=== PATIENT | female | born 1950 | race Caucasian/White ===

== ENCOUNTER 2022-05-13 11:01 | Outpatient (CLI) | payer OTHER, SELFPAY ==
[2022-05-13 13:49] LABS: Ferritin* 8.4 ng/mL (11.1-264.0)
== END 2022-05-13 11:02 | disposition home or self-care (01) ==
LOC: NFLDREF 11:02
PROVIDERS: PCP Family Medicine; Visit Provider Family Medicine
DX: K62.5 Hemorrhage of anus and rectum (principal)
CPT/HCPCS: 82728

== ENCOUNTER 2023-02-03 08:15 | Outpatient (CLI) | payer OTHER, SELFPAY | END 2023-02-03 08:16 | disposition home or self-care (01) | LOC: NFLDREF 11:55 | PROVIDERS: PCP Family Medicine; Referring Provider Family Medicine; Visit Provider Family Medicine | DX: Z00.00 Encounter for general adult medical examination without abnormal findings (principal); E78.5 Hyperlipidemia, unspecified; M85.80 Other specified disorders of bone density and structure, unspecified site; F41.9 Anxiety disorder, unspecified; Z13.21 Encounter for screening for nutritional disorder | CPT/HCPCS: 80061; 82306; 82947 ==

== ENCOUNTER 2023-02-09 08:53 | Outpatient (CLI) | payer OTHER, SELFPAY ==
--- NOTE | 2023-02-09 09:15 | CRLHL7_ITS ---
For Patients: As a result of the Century Cures Act, medical imaging exams and procedure reports are released immediately into your electronic medical record. You may view this report before your referring provider. If you have questions, please contact your health care provider. BILATERAL SCREENING MAMMOGRAM WITH COMPUTER-AIDED DETECTION AND TOMOSYNTHESIS TECHNIQUE: CC and MLO views were obtained. These mammographic images have been obtained using full-field digital technique. These mammographic images were interpreted with the benefit of computer-aided detection. Breast Tomosynthesis was used in this interpretation. COMPARISON FILM: 02/05/22, 10/29/20, 06/30/19. FINDINGS: There are scattered areas of fibroglandular density IMPRESSION: There is no radiographic evidence for malignancy. ASSESSMENT: BI-RADS Category 1: Negative RECOMMENDATION: Routine screening mammogram in 1 year. A lay language report of this examination will be provided to the patient. Delon Prather M.D. Diagnostic Radiologist [email or web address] RADHA/Dictated by: Delon Prather MD @ 02/09/2023 10:00:00 AM (Electronically Signed)
== END 2023-02-09 08:54 | disposition home or self-care (01) ==
LOC: MAMMO 08:54
PROVIDERS: PCP Family Medicine; Visit Provider Family Medicine
DX: Z12.31 Encounter for screening mammogram for malignant neoplasm of breast (principal)
CPT/HCPCS: 77063; 77067

== ENCOUNTER 2024-02-24 08:39 | Outpatient (CLI) | payer OTHER, SELFPAY ==
--- NOTE | 2024-02-24 09:15 | CRLHL7_ITS ---
For Patients: As a result of the Century Cures Act, medical imaging exams and procedure reports are released immediately into your electronic medical record. You may view this report before your referring provider. If you have questions, please contact your health care provider. BILATERAL SCREENING MAMMOGRAM WITH COMPUTER-AIDED DETECTION AND TOMOSYNTHESIS TECHNIQUE: CC and MLO views were obtained. These mammographic images have been obtained using full-field digital technique. These mammographic images were interpreted with the benefit of computer-aided detection. Breast Tomosynthesis was used in this interpretation. COMPARISON FILM: 02/09/23, 02/05/22, 10/29/20. FINDINGS: There are scattered areas of fibroglandular density. IMPRESSION: There is no radiographic evidence for malignancy. ASSESSMENT: BI-RADS Category 1: Negative RECOMMENDATION: Routine screening mammogram in 1 year. A lay language report of this examination will be provided to the patient. Sam Naqvi M.D. Diagnostic/Nuclear Medicine Radiologist [email or web address] ANTWON/digna SP/Dictated by: Sam Naqvi MD @ 02/24/2024 11:07:00 AM (Electronically Signed)
== END 2024-02-24 08:40 | disposition home or self-care (01) ==
LOC: MAMMO 08:42
PROVIDERS: PCP Physician Assistant Medical; Visit Provider Physician Assistant Medical
DX: Z12.31 Encounter for screening mammogram for malignant neoplasm of breast (principal)
CPT/HCPCS: 77063; 77067

== ENCOUNTER 2024-04-26 08:59 | Outpatient (CLI) | payer OTHER, SELFPAY ==
--- OUTSIDE RECORDS SUMMARY | 2024-04-26 09:04 | XMS_ITS | Encounter Summary ---
Author Organization [facility] Address [address] [place] [address]. [place] [address] Care Team Providers Care Funeral Assistant Name Role Phone Concha Garcia MD Primary Care Provider [phone] Debbie Murrell RN Unavailable Unavail able LogeaisZoe MD Primary Care Provider [phone] LogeaisZoe MD Unavailable LogeaisZoe MD Unavailable Homa Patterson MD Primary Care Provider + Encounter Details Date Type Department Care Team (Late st Contact Info) Description 09/20/2012 Abstract [address] [address] Chiquita Grady RN Social History Tobacco Use Types Packs/Day Years Used Date Smoking Tobacco: Never Alcohol Use Standard Drinks/Week Comments Yes 0 (1 standard drink = 0.6 oz pur e alcohol) 1-2 beers per month Sex and Gender Information Value Date Recorded Sex Assigned at Not on file Gender Identity Not on file Sexual Orientation Not on file documented as of this encounter Plan of Treatment Not on file documented as of this encounter Visit Diagnoses Not on filedocumented in this encounter Care Teams Funeral Assistant Relationship Specialty [place] [address] [place] [address] PCP - General 02/26/12 02/13/14 Zoe Esqueda MD PCP - General Internal Medicine 02/14/14 03/17/23 Homa Patterson MD [address] [address] PCP - General 03/18/23 Debbie Murrell RN Tech Transplant 02/26/12 Zoe Esqueda MD [address] [place] [address] Assigned PCP 01/04/20 11/23/20 Zoe Esqueda MD [address] [place] [address] Assigned PCP 01/09/21 07/12/21 documented as of this encounter
--- OUTSIDE RECORDS SUMMARY | 2024-04-26 09:04 | XMS_ITS | Encounter Summary ---
Author Organization [facility] Address [address] [place] [address] Care Team Providers Care Mental Health Program Manager Name Role Phone Debbie Murrell RN Unavailable Unavail able LogeaZoe sanchez MD Primary Care Provider [phone] Zoe Esqueda MD Unavailable LogeaZoe sanchez MD Unavailable Homa Patterson MD Primary Care Provider + Encounter Details Date Type Department Care Team (Late st Contact Info) Description 04/03/2016 [facility] [address] [place] [phone] Zoe Esqueda MD [address] [place] [address] Social History Tobacco Use Types Packs/Day Years Used Date Smoking Tobacco: Never Smokeless Tobacco: Never Alcohol Use Standard Drinks/Week Comments [...] on filedocumented in this encounter Care Teams Mental Health Program Manager Relationship Specialty Start Date End Date Zoe Esqueda MD PCP - General Internal Medicine 02/14/14 03/17/23 Homa Patterson MD [address] [address] PCP - General 03/18/23 Debbie Murrell, RN Tech Transplant 02/26/12 Zoe Esqueda MD [address] [id number] Assigned PCP 01/04/20 11/23/20 Zoe Esqueda MD [address] [place] [id number] Assigned PCP 01/09/21 07/12/21 documented as of this encounter
--- OUTSIDE RECORDS SUMMARY | 2024-04-26 09:04 | XMS_ITS | Referral Summary ---
Author Organization [facility] Address [address] [place] [address]. [place] [address] Care Team Providers Care Records Administrator Name Role Phone Debbie Murrell RN Unavailable Unavail able Homa Patterson MD Primary Care Provider + Allergies No known active allergies Medications Medication Sig Dispensed Refills Start Date End Date Status UNABLE TO FIND Take 1 tablet by mouth 2 times daily Beta-TCP 08/16/2014 Active UNABLE TO FIND Take 2 tablets by mouth 2 times daily Bio-Glycozyme Forte 08/16/2014 Active UNABLE TO FIND Take 3 tablets by mouth 2 times daily [place]-Zyme Active UNABLE TO FIND Take 1 tablet by mouth 2 times daily Multi-Mins 08/16/2014 Active UNABLE TO FIND Take 1 tablet by mouth 2 times daily PoSynbiotic 08/16/2014 Active diazepam (VALIUM) 2 MG tabletIndications:C laustrophobia Take 3 tablets (6 mg) by mouth every 6 hours as needed for anxiety (10 min prior to MRI, 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 [email or web address] Problem Noted Date Diagnosed Date Pain in joint of left shoulder 04/24/2016 Hypercholesterolemia 02/26/2012 Overview: Diagnosis updated by automated process. Provider to review and confirm. Hyperlipidemia 02/26/2012 Overview: Problem list name updated by automated process. Provider to review Transplant donor evaluation 02/26/2012 Claustrophobia 02/26/2012 Lumbar degenerative disc disease Overview: not really an issue Pelvic pain in female Immunizations Name Administration Dates Next Due Influenza (High Dose) Trivalent,PF (Fluzone) Influenza (IIV3) PF 06/11/2017,09/18/2012 Pneumo Conj 13-V (2010&after) 07/11/2018 TDAP (Adacel,Boostrix) 01/14/2013 TDAP Vaccine (Boostrix) 01/31/2013 Zoster recombinant adjuvanted (SHINGRIX) 018 Zoster vaccine, live 01/31/2013 Social History Tobacco Use Types Packs/Day Years Used Date Smoking Tobacco: Never Smokeless Tobacco: Never Tobacco Cessation:Counseling Given: No Alcohol Use Standard Drinks/Week Comments Yes 0 (1 standard drink = 0.6 oz pur e alcohol) 1-2 beers per month PHQ-2 Answer Date Recorded PHQ-2 Score 0 07/11/2018 Adolescent Education Answer Date Record ed Getting School Help Needed Not on file 05/13 Sex and Gender Information Value Date Recorded Sex Assigned at Not on file Gender Identity Not on file Sexual Orientation Not on file Last Filed Vital Signs Vital Sign Reading Time Taken Comments Blood Pressure 121/82 07/11/2018 11:39 AM DATA SCIENTIST Pulse 69 07/11/2018 11:39 AM DATA SCIENTIST Temperature 36.5 ??C (97.7 ??F) 06/11/2017 7:44 AM CD T Respiratory Rate 18 06/11/2017 7:44 AM CDT Oxygen Saturation 97% 07/11/2018 11:39 AM DATA SCIENTIST Inhaled Oxygen Concentration - - Weight 84.4 kg (186 lb) 07/11/2018 11:39 AM DATA SCIENTIST Height 172 cm (5' 7.72) 06/11/2017 7:44 AM CDT Body Mass Index 28.52 06/11/2017 7:44 AM CDT Plan of Treatment Not on file Procedures Procedure Name Priority Date/Time Associated Diagnosis Comments COLONOSCOPY - HIM SCAN Routine 9 9:11 AM CDT COMPREHENSIVE METABOLIC PANEL Routine 07/11/2018 1:32 PM DATA SCIENTIST Routine general medical examination at a health care facility Kidney donor LIPID REFLEX TO DIRECT LDL PANEL Routine 07/11/2018 1:32 PM DATA SCIENTIST Hypercholesterolemi a MAMMOGRAM - HIM SCAN 07/27/2013 HEPATITIS C ANTIBODY Routine 02/26/2012 8:17 AM CDT Donor of kidney for transplant Transplant donor evaluation from Last 3 Months or Most Recently Relevant to Health Maintenance Results * (ABNORMAL) Colonoscopy - HIM Scan (04/07/2019) Jodies Jesus Alberto Gracia CMA - 04/07/2019 [facility] Colorectal polyp detected on colonoscopy Hemorrhoids, internal Patient Reported PROCEDURES * (ABNORMAL) Lipid panel reflex to direct LDL Fasting (07/11/2018 1:32 PM DATA SCIENTIST) Cholesterol 198 <200 mg/dL 07/11/2018 2:09 PM DATA SCIENTIST [facility] Triglycerides 88 <150 mg/dL 07/11/2018 2:09 PM DATA SCIENTIST [facility] HDL Cholesterol 57 >49 mg/dL 8 2:09 PM DATA SCIENTIST [facility] LDL Cholesterol Calculated 123(H) <100 mg/dL 07/11/2018 2:09 PM DATA SCIENTIST [facility] Comment: Above desirable: ??100-129 mg/dl Borderline High: ??130-159 mg/dL High: ? 160-189 mg/dL Very high: ? >189 mg/dl Non HDL Cholesterol 141(H) <130 mg/dL 07/11/2018 2:09 PM DATA SCIENTIST [facility] Comment: Above Desirable: ??130-159 mg/dl Borderline high: ??160-189 mg/dl High: ? 190-219 mg/dl Very high: ? >219 mg/dl Blood specimen (specimen) 07/11/2018 1:32 PM DATA SCIENTIST 07/11/2018 1:35 PM DATA SCIENTIST Zoe Esqueda MD LAB - BLOOD ORDERABL ES [facility] [address] [phone] * Comprehensive metabolic panel (07/11/2018 1:32 PM DATA SCIENTIST) Sodium 141 133 - 144 mmol/L 07/11/2018 2:09 PM DATA SCIENTIST [facility] Potassium 4.3 3.4 - 5.3 mmol/L 07/11/2018 2:09 PM DATA SCIENTIST [facility] Chloride 108 94 - 109 mmol/L 07/11/2018 2:09 PM [facility] Carbon Dioxide 25 20 - 32 mmol/L 07/11/2018 2:09 PM [facility] Anion Gap 8 3 - 14 mmol/L 07/11/2018 2:09 PM [facility] Glucose 83 70 - 99 mg/dL 07/11/2018 2:09 PM [facility] Urea Nitrogen 14 7 - 30 mg/dL 07/11/2018 2:09 PM [facility] Creatinine 0.70 0.52 - 1.04 mg/dL 07/11/2018 2:09 PM [facility] GFR Estimate 83 >60 mL/min/1.7 m2 07/11/2018 2:09 PM [facility] Comment:Non GFR Calc GFR Estimate If Black >90 >60 mL/min/1.7 m2 07/11/2018 2:09 PM [facility] Comment: GFR Calc Calcium 8.6 8.5 - 10.1 mg/dL 07/11/2018 2:09 PM [facility] Bilirubin Total 0.6 0.2 - 1.3 mg/dL 07/11/2018 2:09 PM [facility] Albumin 3.8 3.4 - 5.0 g/dL 07/11/2018 2:09 PM [facility] Protein Total 7.5 6.8 - 8.8 g/dL 07/11/2018 2:09 PM [facility] Alkaline Phosphatase 64 40 - 150 U/L 07/11/2018 2:09 PM DATA SCIENTIST [facility] ALT 39 0 - 50 U/L 07/11/2018 2:09 PM DATA SCIENTIST [facility] AST 32 0 - 45 U/L 07/11/2018 2:09 PM DATA SCIENTIST [facility] Blood specimen (specimen) 07/11/2018 1:32 PM DATA SCIENTIST 07/11/2018 1:35 PM DATA SCIENTIST Zoe Esqueda MD LAB - BLOOD PRASANNAABL RYAN Performing Organization Address City/[facility] [address]/ZIP Co de Phone Number [address] [phone] * MAMMOGRAM - HIM SCAN (07/27/2013) Anatomical Region Laterality Modality Other 07/27/2013 Narrative Transcriptions Scan, Provider - 08/28/2013 2:25 PM CST Provider Outside IMG MAMMOGRAPHY NEVA URIBE * Hepatitis C antibody (02/26/2012 8:17 AM CDT) Hepatitis C Antibody Negative [facility] Blood specimen (specimen) 02/26/2012 8:17 AM CDT 02/26/2012 8:22 AM CDT Meir Bloom MD LAB - BLOOD NEVA URIBE [facility] from Last 3 Months or Most Recently Relevant to Health Maintenance Care Teams Records Administrator Relationship Specialty Start Date End Date Homa Patterson MD [facility] [address] [place] [address] PCP - General 03/18/23 Debbie Murrell, RN Tech Transplant 02/26/12
--- OUTSIDE RECORDS SUMMARY | 2024-04-26 09:04 | XMS_ITS | Encounter Summary ---
Author Organization [facility] Address [address] [place] [address]. [place] [address] Care Team Providers Care Shed Boss Name Role Phone Concha Garcia MD Primary Care Provider [phone] Debbie Murrell RN Unavailable Unavail able LogZoe govea MD Primary Care Provider [phone] LogZoe govea MD Unavailable LogeaZoe sanchez MD Unavailable Homa Patterson MD Primary Care Provider + Encounter Details Date Type Department Care Team (Late st Contact Info) Description 02/02/2014 MyC Medical Advice Initial Department [facility] Social History Tobacco Use Types Packs/Day Years [...] on filedocumented in this encounter Care Teams Shed Boss Relationship Specialty [place] [address] [place] [address] PCP - General 02/26/12 02/13/14 Zoe Esqueda MD PCP - General Internal Medicine 02/14/14 03/17/23 Homa Patterson MD [facility] [address] [address] PCP - General 03/18/23 Debbie Murrell, RN Tech Transplant 02/26/12 Zoe Esqueda MD [address] [place] [address] Assigned PCP 01/04/20 11/23/20 Zoe Esqueda MD [address] [place] [address] Assigned PCP 01/09/21 07/12/21 documented as of this encounter
--- OUTSIDE RECORDS SUMMARY | 2024-04-26 09:04 | XMS_ITS | Encounter Summary ---
Author Organization [facility] Address [address] [place] [address] Care Team Providers Care Inspector Repairer Name Role Phone Debbie Murrell RN Unavailable Unavail able LogeaZoe sanchez MD Primary Care Provider [phone] LogZoe govea MD Unavailable LogeaZoe sanchez MD Unavailable Homa Patterson MD Primary Care Provider + Encounter Details Date Type Department Care Team (Late st Contact Info) Description 08/24/2018 [facility] [address] [place] [phone] Zoe Esqueda MD [address] [place] [address] Social History Tobacco Use Types Packs/Day Years Used Date Smoking Tobacco: Never Smokeless Tobacco: Never Alcohol Use Standard Drinks/Week Comments Yes 0 (1 standard drink = 0.6 oz pur e alcohol) 1-2 beers per month PHQ-2 Answer Date Recorded PHQ-2 Score 0 07/11/2018 Sex and Gender Information Value Date Recorded Sex Assigned at Not on file Gender Identity Not on file Sexual Orientation Not on file documented as of this encounter Plan of Treatment Not on file documented as of this encounter Visit Diagnoses Not on filedocumented in this encounter Care Teams Inspector Repairer Relationship Specialty Start Date End Date Zoe Esqueda MD PCP - General Internal Medicine 02/14/14 03/17/23 Homa Patterson MD [address] [address] PCP - General 03/18/23 Debbie Murrell, LENNOX Tech Transplant 02/26/12 Zoe Esqueda MD [address] [address] Assigned PCP 01/04/20 11/23/20 Zoe Esqueda MD [address] [address] Assigned PCP 01/09/21 07/12/21 documented as of this encounter
--- OUTSIDE RECORDS SUMMARY | 2024-04-26 09:04 | XMS_ITS | Clinical Summary ---
Author Organization [facility] [place] [address] Care Team Providers Care Global Marketing Intern Name Role Phone Concha Garcia MD Primary Care Provider [phone] Allergies No known active allergies Medications Medication Sig Dispensed Refills Start Date End Date Status aspirin 81 mg tablet Take 81 mg by mouth once daily with a meal. Active acetaminophen SR (TYLENOL ARTHRITIS) 650 mg extended release tabletIndications: arthritic pain Take 650 mg by mouth every 8 hours if needed. Max acetaminophen dose: 4000mg in 24 hrs. Indications: ARTHRITIC PAIN Active Edmonds-3 Fatty Acids (FISH OIL CONCENTRATE) 1,000 mg Cap Take 2 capsules by mouth 2 times daily. Active Magnesium 500 mg Tab Take 500 mg by mouth once daily in the evening. Active Potassium Gluconate 595 (99) mg tablet Take by mouth before bedtime. Active Cholecalciferol, Vitamin D3, (VITAMIN D-3) 2,000 unit tablet Take by mouth once daily. Active ORDER - MEDICATION ORDER COMPOSER Take 2 Tabs by mouth 2 times daily. USANA essential and USANA kathie antioxidant Active GLUC/CADENCE-MSM#1/C/ EARNESTINE/DOROTHY/BOR (OSTEO BI-FLEX ORAL) Take 1 Tab by mouth 2 times daily. Active ibuprofen (ADVIL; MOTRIN) 600 mg tablet Take 1 tablet by mouth every 6 hours if needed for Pain. Maximum of 3200 mg in 24 hours. 20 tablet 0 06/19/2011 Active HYDROcodone-acetam inophen, 5-500 mg, (VICODIN) Tab tablet Take 1-2 tablets by mouth every 4 hours if needed for Pain. Max acetaminophen dose: 4000mg in 24 hrs. 20 tablet 0 06/19/2011 Active Social History Tobacco Use Types Packs/Day Years Used Date Smoking Tobacco: Never Alcohol Use Standard Drinks/Week Comments Not Asked 0 (1 standard drink = 0.6 oz pur e alcohol) Sex and Gender Information Value Date Recorded Sex Assigned at Not on file Gender Identity Not on file Sexual Orientation Not on file Obstetrics History Last Filed Vital Signs Vital Sign Reading Time Taken Comments Blood Pressure 103/65 06/19/2011 1:30 PM CDT Pulse 80 06/19/2011 1:30 PM CDT Temperature 35.9 ??C (96.6 ??F) 06/19/2011 12:06 PM C DT Respiratory Rate 16 06/19/2011 1:30 PM CDT Oxygen Saturation 99% 06/19/2011 1:30 PM CDT Inhaled Oxygen Concentration - - Weight 86.7 kg (191 lb 2.2 oz) 06/19/2011 7:00 A M CDT Height 174 cm (5' 8.5) 06/19/2011 7:00 AM CDT Body Mass Index 28.64 06/19/2011 7:00 AM CDT Plan of Treatment Not on file Advance Directives * Full Code (Latest Code Status on File) Date Activated Date Inactivated Comments 06/19/2011 11:07 AM 06/19/2011 3:51 PM Care Teams Global Marketing Intern Relationship Specialty Start Date End Date Concha Garcia MD PCP - General Family Practice 05/11/11
--- OUTSIDE RECORDS SUMMARY | 2024-04-26 09:04 | XMS_ITS | Clinical Summary ---
Author Organization [place] Address [address] [place] [address]. [place] [address] Care Team Providers Care Operator/Assistant Foreman Name Role Phone Debbie Murrell RN Unavailable [...] 3 tablets by mouth 2 times daily [place]-Zyme Active UNABLE TO FIND Take 1 tablet by mouth 2 times daily Multi-Mins 08/16/2014 Active UNABLE TO FIND Take 1 tablet by mouth 2 times daily PoSynbiotic 08/16/2014 Active diazepam (VALIUM) 2 MG tabletIndications:C laustrophobia Take 3 tablets (6 mg) by mouth every 6 hours as needed for anxiety (10 min prior to MRI, needs to have log driver home) 3 tablet 06/09/2018 Active Active Problems Patient Care Coordination No te Formatting of this note migh t be different from the original. [email or web address] Problem Noted Date Diagnosed Date Pain in [...] adjuvanted (SHINGRIX) 018 Zoster vaccine, live 01/31/2013 Family History Medical History Relation Comments Thyroid Disease Brother 1 Depression Brother 2 Diabetes Brother 3 adult onset Cerebrovascular Disease Father fro m brain aneurysm Cardiovascular Mother chronic kidney d isease Hypertension Mother Thyroid Disease Other nephew Other - See Comments Paternal Aunt diabetes Thyroid Disease Sister 1 Other - See Comments Sister 2 bladder can cer Hypertension Sister 3 Depression Sister 4 Lung Cancer Sister 5 Relation Status Comments Brother 1 Brother 2 Brother 3 Father Mother Other Paternal Aunt Sister 1 Sister 2 Sister 3 Sister 4 Sister 5 Social History Tobacco Use Types Packs/Day Years [...] Comments Blood Pressure 121/82 07/11/2018 11:39 AM EARLY YEARS TEACHER Pulse 69 07/11/2018 11:39 AM EARLY YEARS TEACHER Temperature 36.5 ??C (97.7 ??F) 06/11/2017 7:44 AM CD T Respiratory Rate 18 06/11/2017 7:44 AM CDT Oxygen Saturation 97% 07/11/2018 11:39 AM EARLY YEARS TEACHER Inhaled Oxygen Concentration - - Weight 84.4 kg (186 lb) 07/11/2018 11:39 AM EARLY YEARS TEACHER Height 172 cm (5' 7.72) 06/11/2017 7:44 AM CDT Body Mass Index 28.52 06/11/2017 7:44 AM CDT Plan of Treatment Health Maintenance Due Date Last Done Comments ADVANCE CARE PLANNING 1950 ANNUAL REVIEW OF HM ORDERS 1950 CT COLONOGRAPHY 1952 DEXA 1952 FIT 1952 FLEX SIG 1952 sDNA (Cologuard) 1950 MAMMO SCREENING 10/31/2017 11/01/2015, 07/27/2013 FALL RISK ASSESSMENT 07/11/2019 07/11/2018 LIPID 07/11/2019 07/11/2018, 05/17, 04/01/2016, Additional history exists MEDICARE ANNUAL WELLNESS VISIT 07/11/2019 07/11/2018, 06/11/2017, 04/03/2016, Additional history exists GLUCOSE 07/11/2021 07/11/2018, 05/17, 03/28/2015, Additional history exists DTAP/TDAP/TD IMMUNIZATION (3 - Td or Tdap) 01/31/2023 01/31/2013, 01/14/2013 PHQ-2 (once per calendar year) 2023 07/11/2018 COVID-19 Vaccine ( season) 2024 08/06/2022, 03/29/2022, 06/30/2021, Additional history exists INFLUENZA VACCINE (#1) 2024 , 06/14/2022, 05/20/2021, Additional history exists COLONOSCOPY 05/04/2024 05/04/2019, 03/17, 04/07/2019, Additional history exists COLORECTAL CANCER SCREENING 05/04/2024 RSV VACCINE (1 - 1-dose 75+ series) 2027 HEPATITIS C SCREENING Completed 02/26/2012 ZOSTER IMMUNIZATION Completed 08/01/2019, 07/11/2018, 01/31/2013 Pneumococcal Vaccine: 65+ Years Completed 01/20/2022, 07/11/2018 HPV IMMUNIZATION Aged Out No longer e ligible based on patient's age to complete this topic MENINGITIS IMMUNIZATION Aged Out No l onger eligible based on patient's age to complete this topic RSV MONOCLONAL ANTIBODY Aged Out No l onger eligible based on patient's age to complete this topic Procedures Procedure Name Priority Date/Time Associated Diagnosis Comments COLONOSCOPY - HIM SCAN Routine 9 9:11 AM CDT COMPREHENSIVE METABOLIC PANEL Routine 07/11/2018 1:32 PM EARLY YEARS TEACHER Routine general medical examination at a health care facility Kidney donor LIPID REFLEX TO DIRECT LDL PANEL Routine 07/11/2018 1:32 PM EARLY YEARS TEACHER Hypercholesterolemi a MAMMOGRAM - HIM SCAN 07/27/2013 HEPATITIS C ANTIBODY Routine 02/26/2012 8:17 AM CDT Donor of kidney for transplant Transplant donor evaluation from Last 3 Months or Most Recently Relevant to Health Maintenance Results * (ABNORMAL) Colonoscopy - HIM Scan (04/07/2019) Impressions Jesus Alberto Gracia CMA - 04/07/2019 [facility] Colorectal polyp detected on colonoscopy Hemorrhoids, internal Patient Reported PROCEDURES * (ABNORMAL) Lipid panel reflex to direct LDL Fasting (07/11/2018 1:32 PM EARLY YEARS TEACHER) Cholesterol 198 <200 mg/dL 07/11/2018 2:09 PM EARLY YEARS TEACHER [facility] Triglycerides 88 <150 mg/dL 07/11/2018 2:09 PM EARLY YEARS TEACHER [facility] HDL Cholesterol 57 >49 mg/dL 8 2:09 PM EARLY YEARS TEACHER [facility] LDL Cholesterol Calculated 123(H) <100 mg/dL 07/11/2018 2:09 PM [facility] Comment: Above desirable: ??100-129 mg/dl Borderline High: ??130-159 mg/dL High: ? 160-189 mg/dL Very high: ? >189 mg/dl Non HDL Cholesterol 141(H) <130 mg/dL 07/11/2018 2:09 PM EARLY YEARS TEACHER [facility] Comment: Above Desirable: ??130-159 mg/dl Borderline high: ??160-189 mg/dl High: ? 190-219 mg/dl Very high: ? >219 mg/dl Blood specimen (specimen) 07/11/2018 1:32 PM EARLY YEARS TEACHER 07/11/2018 1:35 PM EARLY YEARS TEACHER Zoe Esqueda MD LAB - BLOOD ORDERABL ES [address] [phone] * Comprehensive metabolic panel (07/11/2018 1:32 PM EARLY YEARS TEACHER) Sodium 141 133 - 144 mmol/L 07/11/2018 2:09 PM EARLY YEARS TEACHER [facility] Potassium 4.3 3.4 - 5.3 mmol/L 07/11/2018 2:09 PM [facility] Chloride 108 94 - 109 mmol/L 07/11/2018 2:09 PM [facility] Carbon Dioxide 25 20 - 32 mmol/L 07/11/2018 2:09 PM EARLY YEARS TEACHER [facility] Anion Gap 8 3 - 14 mmol/L 07/11/2018 2:09 PM [facility] Glucose 83 70 - 99 mg/dL 07/11/2018 2:09 PM [facility] Urea Nitrogen 14 7 - 30 mg/dL 07/11/2018 2:09 PM [facility] Creatinine 0.70 0.52 - 1.04 mg/dL 07/11/2018 2:09 PM EARLY YEARS TEACHER [facility] GFR Estimate 83 >60 mL/min/1.7 m2 07/11/2018 2:09 PM [facility] Comment:Non GFR Calc GFR Estimate If Black >90 >60 mL/min/1.7 m2 07/11/2018 2:09 PM [facility] Comment: GFR Calc Calcium 8.6 8.5 - 10.1 mg/dL 07/11/2018 2:09 PM EARLY YEARS TEACHER [facility] Bilirubin Total 0.6 0.2 - 1.3 mg/dL 07/11/2018 2:09 PM EARLY YEARS TEACHER [facility] Albumin 3.8 3.4 - 5.0 g/dL 07/11/2018 2:09 PM EARLY YEARS TEACHER [facility] Protein Total 7.5 6.8 - 8.8 g/dL 07/11/2018 2:09 PM EARLY YEARS TEACHER [facility] Alkaline Phosphatase 64 40 - 150 U/L 07/11/2018 2:09 PM EARLY YEARS TEACHER [facility] ALT 39 0 - 50 U/L 07/11/2018 2:09 PM EARLY YEARS TEACHER [facility] AST 32 0 - 45 U/L 07/11/2018 2:09 PM EARLY YEARS TEACHER [facility] Blood specimen (specimen) 07/11/2018 1:32 PM EARLY YEARS TEACHER 07/11/2018 1:35 PM EARLY YEARS TEACHER Zoe Esqueda MD LAB - BLOOD BHAVYA DAVIS Performing Organization Address City/[facility]/ZIP Co de Phone Number [address] [phone] * MAMMOGRAM - HIM SCAN (07/27/2013) Anatomical Region Laterality Modality Other 07/27/2013 Narrative Transcriptions Scan, Provider - 08/28/2013 2:25 PM CST Provider Outside IMG MAMMOGRAPHY NEVA URIBE * Hepatitis C antibody (02/26/2012 8:17 AM CDT) Hepatitis C Antibody Negative NEG [facility] Blood specimen (specimen) 02/26/2012 8:17 AM CDT 02/26/2012 8:22 AM CDT Meir Bloom MD LAB - BLOOD NEVA URIBE [facility] from Last 3 Months or Most Recently Relevant to Health Maintenance Care Teams Operator/Assistant Foreman Relationship Specialty Start Date End Date Homa Patterson MD [facility] [address] [place] [address] PCP - General 03/18/23 Debbie Murrell RN Tech Transplant 02/26/12
--- OUTSIDE RECORDS SUMMARY | 2024-04-26 09:04 | XMS_ITS ---
Author Organization [place] Address [address] [place] [address] Care Team Providers Care Machine Welder Name Role Phone Debbie Murrell RN, Ingrid Sara MD Primary Care Provider + Transplant Episode Kidney Potential Donor [facility] ([place], [place]) - [place] Evaluation began on 02/26/2012 Marked as Active on 02/26/2012 Kidney CoordinatorDebbie Murrell RN Phone: N/A Fax: N/A Email: Care Team Name Role Phone Fax Email Debbie Murrell RN Kidney Coordinator N/A N/A Events Pre-Donation Referred: 01/15/2012 Evaluation began: 02/26/2012 Committee: 04/11/2012
== END 2024-04-26 09:00 | disposition home or self-care (01) ==
PROVIDERS: PCP Physician Assistant Medical; Visit Provider Physician Assistant Medical
DX: R53.83 Other fatigue (principal); M85.852 Other specified disorders of bone density and structure, left thigh; E78.00 Pure hypercholesterolemia, unspecified; Z13.29 Encounter for screening for other suspected endocrine disorder
CPT/HCPCS: 80053; 80061; 82306; 84443

== ENCOUNTER 2024-05-24 12:46 | Outpatient (CLI) | payer OTHER, SELFPAY ==
--- OUTSIDE RECORDS SUMMARY | 2024-05-24 12:50 | XMS_ITS | Encounter Summary ---
Author Organization [place] Address [address] [place] [address]. [place] [address] Care Team Providers Care Cardiovascular Surgeon Name Role Phone Concha Garcia MD Primary Care Provider [phone] Debbie Murrell RN Unavailable Unavail able LogeaisZoe MD Primary Care Provider [phone] LogeaisZoe MD Unavailable LogeaisZoe MD Unavailable Homa Patterson MD Primary Care Provider + Encounter Details Date Type Department Care Team (Late st Contact Info) Description 09/20/2012 Abstract [address] [phone] Chiquita Grady RN Social History Tobacco Use [...] on filedocumented in this encounter Care Teams Cardiovascular Surgeon Relationship Specialty [place] [address] [place] [address] PCP - General 02/26/12 02/13/14 Zoe Esqueda MD PCP - General Internal Medicine 02/14/14 03/17/23 Homa Patterson MD [address] [address] PCP - General 03/18/23 Debbie Murrell RN Tech Transplant 02/26/12 Zoe Esqueda MD [address] [place] [address] Assigned PCP 01/04/20 11/23/20 Zoe Esqueda MD [address] [place] [address] Assigned PCP 01/09/21 07/12/21 documented as of this encounter
--- OUTSIDE RECORDS SUMMARY | 2024-05-24 12:50 | XMS_ITS | Encounter Summary ---
Author Organization [place] Address [address] [place] [address] Care Team Providers Care Tape Controlled Machine Stitcher Name Role Phone Debbie Murrell RN Unavailable Unavail able LogeaZoe sanchez MD Primary Care Provider [phone] LogZoe govea MD Unavailable LogeaZoe sanchez MD Unavailable Homa Patterson MD Primary Care Provider + Encounter Details Date Type Department Care Team (Late st Contact Info) Description 08/24/2018 [facility] [address] [place] [id number] Zoe Esqueda MD [address] [place] [address] Social History Tobacco Use Types Packs/Day [...] on filedocumented in this encounter Care Teams Tape Controlled Machine Stitcher Relationship Specialty Start Date End Date Zoe Esqueda MD PCP - General Internal Medicine 02/14/14 03/17/23 Homa Patterson MD [address] [address] PCP - General 03/18/23 Debbie Murrell, LENNOX Tech Transplant 02/26/12 Zoe Esqueda MD [address] [address] Assigned PCP 01/04/20 11/23/20 Zoe Esqueda MD [address] [address] Assigned PCP 01/09/21 07/12/21 documented as of this encounter
--- OUTSIDE RECORDS SUMMARY | 2024-05-24 12:50 | XMS_ITS | Clinical Summary ---
Author Organization [place] Address [address] [place] [address]. [place] [address] Care Team Providers Care Intel Analyst Name Role Phone Debbie Murrell RN Unavailable [...] 3 tablets by mouth 2 times daily [place]-Zyme Active UNABLE TO FIND Take 1 tablet by mouth 2 times daily Multi-Mins 08/16/2014 Active UNABLE TO FIND Take 1 tablet by mouth 2 times daily PoSynbiotic 08/16/2014 Active diazepam (VALIUM) 2 MG tabletIndications:C laustrophobia Take 3 tablets (6 mg) by mouth every 6 hours as needed for anxiety (10 min prior to MRI, needs to have driver engineer home) 3 tablet 06/09/2018 Active Active Problems Patient Care Coordination No te Formatting of this note migh t be different from the original. [email or web address] Problem Noted Date Diagnosed Date Pain in [...] Comments Blood Pressure 121/82 07/11/2018 11:39 AM CAMERA REPAIRER Pulse 69 07/11/2018 11:39 AM CAMERA REPAIRER Temperature 36.5 ??C (97.7 ??F) 06/11/2017 7:44 AM CD T Respiratory Rate 18 06/11/2017 7:44 AM CDT Oxygen Saturation 97% 07/11/2018 11:39 AM CAMERA REPAIRER Inhaled Oxygen Concentration - - Weight 84.4 kg (186 lb) 07/11/2018 11:39 AM CAMERA REPAIRER Height 172 cm (5' 7.72) 06/11/2017 7:44 [...] COMPREHENSIVE METABOLIC PANEL Routine 07/11/2018 1:32 PM CAMERA REPAIRER Routine general medical examination at a health care facility Kidney donor LIPID REFLEX TO DIRECT LDL PANEL Routine 07/11/2018 1:32 PM CAMERA REPAIRER Hypercholesterolemi a MAMMOGRAM - HIM SCAN 07/27/2013 HEPATITIS C ANTIBODY Routine 02/26/2012 8:17 AM CDT Donor of kidney for transplant Transplant donor evaluation from Last 3 Months or Most Recently Relevant to Health Maintenance Results * (ABNORMAL) Colonoscopy - HIM Scan (04/07/2019) Impressions Jesus Alberto Gracia CMA - 04/07/2019 [facility] Colorectal polyp detected on colonoscopy Hemorrhoids, internal Patient Reported PROCEDURES * (ABNORMAL) Lipid panel reflex to direct LDL Fasting (07/11/2018 1:32 PM CAMERA REPAIRER) Cholesterol 198 <200 mg/dL 07/11/2018 2:09 PM CAMERA REPAIRER [facility] Triglycerides 88 <150 mg/dL 07/11/2018 2:09 PM CAMERA REPAIRER [facility] HDL Cholesterol 57 >49 mg/dL 8 2:09 PM CAMERA REPAIRER [facility] LDL Cholesterol Calculated 123(H) <100 mg/dL 07/11/2018 2:[address] [facility] Comment: Above desirable: ??100-129 mg/dl Borderline High: ??130-159 mg/dL High: ? 160-189 mg/dL Very high: ? >189 mg/dl Non HDL Cholesterol 141(H) <130 mg/dL 07/11/2018 2:09 PM CAMERA REPAIRER [facility] Comment: Above Desirable: ??130-159 mg/dl Borderline high: ??160-189 mg/dl High: ? 190-219 mg/dl Very high: ? >219 mg/dl Blood specimen (specimen) 07/11/2018 1:32 PM CAMERA REPAIRER 07/11/2018 1:35 PM CAMERA REPAIRER Zoe Esqueda MD LAB - BLOOD ORDERABL ES [address] [phone] * Comprehensive metabolic panel (07/11/2018 1:32 PM CAMERA REPAIRER) Sodium 141 133 - 144 mmol/L 07/11/2018 2:09 PM CAMERA REPAIRER [facility] Potassium 4.3 3.4 - 5.3 mmol/L 07/11/2018 2:[address] [facility] Chloride 108 94 - 109 mmol/L 07/11/2018 2:[address] [facility] Carbon Dioxide 25 20 - 32 mmol/L 07/11/2018 2:09 PM CAMERA REPAIRER [facility] Anion Gap 8 3 - 14 mmol/L 07/11/2018 2:[address] [facility] Glucose 83 70 - 99 mg/dL 07/11/2018 2:[address] [facility] Urea Nitrogen 14 7 - 30 mg/dL 07/11/2018 2:[address] [facility] Creatinine 0.70 0.52 - 1.04 mg/dL 07/11/2018 2:09 PM CAMERA REPAIRER [facility] GFR Estimate 83 >60 mL/min/1.7 m2 07/11/2018 2:[address] [facility] Comment:Non GFR Calc GFR Estimate If Black >90 >60 mL/min/1.7 m2 07/11/2018 2:[address] [facility] Comment: GFR Calc Calcium 8.6 8.5 - 10.1 mg/dL 07/11/2018 2:09 PM CAMERA REPAIRER [facility] Bilirubin Total 0.6 0.2 - 1.3 mg/dL 07/11/2018 2:09 PM CAMERA REPAIRER [facility] Albumin 3.8 3.4 - 5.0 g/dL 07/11/2018 2:09 PM CAMERA REPAIRER [facility] Protein Total 7.5 6.8 - 8.8 g/dL 07/11/2018 2:09 PM CAMERA REPAIRER [facility] Alkaline Phosphatase 64 40 - 150 U/L 07/11/2018 2:09 PM CAMERA REPAIRER [facility] ALT 39 0 - 50 U/L 07/11/2018 2:09 PM CAMERA REPAIRER [facility] AST 32 0 - 45 U/L 07/11/2018 2:09 PM CAMERA REPAIRER [facility] Blood specimen (specimen) 07/11/2018 1:32 PM CAMERA REPAIRER 07/11/2018 1:35 PM CAMERA REPAIRER Zoe Esqueda MD LAB - BLOOD BHAVYA DAVIS Performing Organization Address City/[facility]/ZIP Co de Phone Number [address] [phone] * MAMMOGRAM - HIM SCAN (07/27/2013) Anatomical Region Laterality Modality Other 07/27/2013 Narrative Transcriptions Scan, Provider - 08/28/2013 2:25 PM CST Provider Outside IMG MAMMOGRAPHY NEVA URIBE * Hepatitis C antibody (02/26/2012 8:17 AM CDT) Hepatitis C Antibody Negative [facility]G [facility] Blood specimen (specimen) 02/26/2012 8:17 AM CDT 02/26/2012 8:22 AM CDT Meir Bloom MD LAB - BLOOD NEVA URIBE [facility] from Last 3 Months or Most Recently Relevant to Health Maintenance Care Teams Intel Analyst Relationship Specialty Start Date End Date Homa Patterson MD [facility] [address] [place] [address] PCP - General 03/18/23 Debbie Murrell RN Tech Transplant 02/26/12
--- OUTSIDE RECORDS SUMMARY | 2024-05-24 12:50 | XMS_ITS | Referral Summary ---
Author Organization [place] Address [address] [place] [address]. [place] [address] Care Team Providers Care Credentialing Specialist Name Role Phone Debbie Murrell RN Unavailable [...] 3 tablets by mouth 2 times daily [place]-Zyme Active UNABLE TO FIND Take 1 tablet by mouth 2 times daily Multi-Mins 08/16/2014 Active UNABLE TO FIND Take 1 tablet by mouth 2 times daily PoSynbiotic 08/16/2014 Active diazepam (VALIUM) 2 MG tabletIndications:C laustrophobia Take 3 tablets (6 mg) by mouth every 6 hours as needed for anxiety (10 min prior to MRI, needs to have dedicated driver home) 3 tablet 06/09/2018 Active Active Problems Patient Care Coordination No te Formatting of this note migh t be different from the original. [email or web address] Problem Noted Date Diagnosed Date Pain in [...] Comments Blood Pressure 121/82 07/11/2018 11:39 AM SCHOOL CLERK Pulse 69 07/11/2018 11:39 AM SCHOOL CLERK Temperature 36.5 ??C (97.7 ??F) 06/11/2017 7:44 AM CD T Respiratory Rate 18 06/11/2017 7:44 AM CDT Oxygen Saturation 97% 07/11/2018 11:39 AM SCHOOL CLERK Inhaled Oxygen Concentration - - Weight 84.4 kg (186 lb) 07/11/2018 11:39 AM SCHOOL CLERK Height 172 cm (5' 7.72) 06/11/2017 7:44 AM CDT Body Mass Index 28.52 06/11/2017 7:44 AM CDT Plan of Treatment Not on file Procedures Procedure Name Priority Date/Time Associated Diagnosis Comments COLONOSCOPY - HIM SCAN Routine 9 9:11 AM CDT COMPREHENSIVE METABOLIC PANEL Routine 07/11/2018 1:32 PM SCHOOL CLERK Routine general medical examination at a health care facility Kidney donor LIPID REFLEX TO DIRECT LDL PANEL Routine 07/11/2018 1:32 PM SCHOOL CLERK Hypercholesterolemi a MAMMOGRAM - HIM SCAN 07/27/2013 HEPATITIS C ANTIBODY Routine 02/26/2012 8:17 AM CDT Donor of kidney for transplant Transplant donor evaluation from Last 3 Months or Most Recently Relevant to Health Maintenance Results * (ABNORMAL) Colonoscopy - HIM Scan (04/07/2019) Jodies Jesus Alberto Gracia CMA - 04/07/2019 [facility] Colorectal polyp detected on colonoscopy Hemorrhoids, internal Patient Reported PROCEDURES * (ABNORMAL) Lipid panel reflex to direct LDL Fasting (07/11/2018 1:32 PM SCHOOL CLERK) Cholesterol 198 <200 mg/dL 07/11/2018 2:[address] [facility] Triglycerides 88 <150 mg/dL 07/11/2018 2:[address] [facility] HDL Cholesterol 57 >49 mg/dL 8 2:[address] [facility] LDL Cholesterol Calculated 123(H) <100 mg/dL 07/11/2018 2:[address] [facility] Comment: Above desirable: ??100-129 mg/dl Borderline High: ??130-159 mg/dL High: ? 160-189 mg/dL Very high: ? >189 mg/dl Non HDL Cholesterol 141(H) <130 mg/dL 07/11/2018 2:[address] [facility] Comment: Above Desirable: ??130-159 mg/dl Borderline high: ??160-189 mg/dl High: ? 190-219 mg/dl Very high: ? >219 mg/dl Blood specimen (specimen) 07/11/2018 1:32 PM SCHOOL CLERK 07/11/2018 1:35 PM SCHOOL CLERK Zoe Esqueda MD LAB - BLOOD ORDERABL ES [facility] [address] [phone] * Comprehensive metabolic panel (07/11/2018 1:32 PM SCHOOL CLERK) Sodium 141 133 - 144 mmol/L 07/11/2018 2:[address] [facility] Potassium 4.3 3.4 - 5.3 mmol/L 07/11/2018 2:[address] [facility] Chloride 108 94 - 109 mmol/L 07/11/2018 2:[address] [facility] Carbon Dioxide 25 20 - 32 mmol/L 07/11/2018 2:[address] [facility] Anion Gap 8 3 - 14 mmol/L 07/11/2018 2:[address] [facility] Glucose 83 70 - 99 mg/dL 07/11/2018 2:[address] [facility] Urea Nitrogen 14 7 - 30 mg/dL 07/11/2018 2:[address] [facility] Creatinine 0.70 0.52 - 1.04 mg/dL 07/11/2018 2:[address] [facility] GFR Estimate 83 >60 mL/min/1.7 m2 07/11/2018 2:[address] [facility] Comment:Non GFR Calc GFR Estimate If Black >90 >60 mL/min/1.7 m2 07/11/2018 2:[address] [facility] Comment: GFR Calc Calcium 8.6 8.5 - 10.1 mg/dL 07/11/2018 2:[address] [facility] Bilirubin Total 0.6 0.2 - 1.3 mg/dL 07/11/2018 2:[address] [facility] Albumin 3.8 3.4 - 5.0 g/dL 07/11/2018 2:[address] [facility] Protein Total 7.5 6.8 - 8.8 g/dL 07/11/2018 2:[address] [facility] Alkaline Phosphatase 64 40 - 150 U/L 07/11/2018 2:[address] [facility] ALT 39 0 - 50 U/L 07/11/2018 2:[address] [facility] AST 32 0 - 45 U/L 07/11/2018 2:[address] [facility] Blood specimen (specimen) 07/11/2018 1:32 PM SCHOOL CLERK 07/11/2018 1:35 PM SCHOOL CLERK Zoe Esqueda MD LAB - BLOOD PRASANNAABL RYAN Performing Organization Address City/[facility]/ZIP Co de Phone Number [address] [phone] * MAMMOGRAM - HIM SCAN (07/27/2013) Anatomical Region Laterality Modality Other 07/27/2013 Narrative Transcriptions Scan, Provider - 08/28/2013 2:25 PM CST Provider Outside IMG MAMMOGRAPHY NEVA URIBE * Hepatitis C antibody (02/26/2012 8:17 AM CDT) Hepatitis C Antibody Negative [facility]G [facility] Blood specimen (specimen) 02/26/2012 8:17 AM CDT 02/26/2012 8:22 AM CDT Meir Bloom MD LAB - BLOOD NEVA URIBE [facility] from Last 3 Months or Most Recently Relevant to Health Maintenance Care Teams Credentialing Specialist Relationship Specialty Start Date End Date Homa Patterson MD [facility] [address] [place] [address] PCP - General 03/18/23 Debbie Murrell, RN Tech Transplant 02/26/12
--- OUTSIDE RECORDS SUMMARY | 2024-05-24 12:50 | XMS_ITS | Clinical Summary ---
Author Organization [facility] Address [place], [place] [address] Care Team Providers Care Kinder Teacher Name Role Phone Concha Garcia MD Primary Care Provider [phone] Allergies No known active allergies Medications Medication Sig Dispensed Refills Start Date End Date Status aspirin 81 mg tablet Take 81 mg by mouth once daily with a meal. Active acetaminophen SR (TYLENOL ARTHRITIS) 650 mg extended release tabletIndications: arthritic pain Take 650 mg by mouth every 8 hours if needed. Max acetaminophen dose: 4000mg in 24 hrs. Indications: ARTHRITIC PAIN Active [place]-3 Fatty Acids (FISH OIL CONCENTRATE) 1,000 mg [...] 11:07 AM 06/19/2011 3:51 PM Care Teams Kinder Teacher Relationship Specialty Start Date End Date Concha Garcia MD PCP - General Family Practice 05/11/11
--- OUTSIDE RECORDS SUMMARY | 2024-05-24 12:50 | XMS_ITS ---
Author Organization [facility] Address [address] [place] [address] Care Team Providers Care Pastor Name Role Phone Debbie Murrell RN, Ingrid Sara MD Primary Care Provider + Transplant Episode Kidney Potential Donor [facility] ([place], [place]) - [place] Evaluation began on 02/26/2012 Marked as Active on 02/26/2012 Kidney CoordinatorDebbie Murrell RN Phone: N/A Fax: N/A Email: [email or web address] Team Name Role Phone Fax Email Debbie Murrell RN Kidney Coordinator N/A N/A Events Pre-Donation Referred: 01/15/2012 Evaluation began: 02/26/2012 Committee: 04/11/2012
--- OUTSIDE RECORDS SUMMARY | 2024-05-24 12:50 | XMS_ITS | Encounter Summary ---
Author Organization [facility] Address [address] [place] [address] Care Team Providers Care Blasting Contract Man Name Role Phone Debbie Murrell RN Unavailable Unavail able LogeaZoe sanchez MD Primary Care Provider [phone] Zoe Esqueda MD Unavailable LogeaZoe sanchez MD Unavailable Homa Patterson MD Primary Care Provider + Encounter Details Date Type Department Care Team (Late st Contact Info) Description 04/03/2016 [facility] [address] [place] [phone] Zoe Esqueda MD [address] [place] [address] Social History Tobacco Use Types Packs/Day [...] on filedocumented in this encounter Care Teams Blasting Contract Man Relationship Specialty Start Date End Date Zoe Esqueda MD PCP - General Internal Medicine 02/14/14 03/17/23 Homa Patterson MD [address] [address] PCP - General 03/18/23 Debbie Murrell, RN Tech Transplant 02/26/12 Zoe Esqueda MD [address] [address] Assigned PCP 01/04/20 11/23/20 Zoe Esqueda MD [address] [place] [id number] Assigned PCP 01/09/21 07/12/21 documented as of this encounter
--- OUTSIDE RECORDS SUMMARY | 2024-05-24 12:50 | XMS_ITS | Encounter Summary ---
Author Organization [facility] Address [address] [place] [address]. [place] [address] Care Team Providers Care Processor Inspector Name Role Phone Concha Garcia MD Primary Care Provider [phone] Debbie Murrell RN Unavailable Unavail able LogZoe govea MD Primary Care Provider [phone] LogZoe govea MD Unavailable LogeaZoe sanchez MD Unavailable Homa Patterson MD Primary Care Provider + Encounter Details Date Type Department Care Team (Late st Contact Info) Description 02/02/2014 MyC Medical Advice Initial Department [facility] Social History Tobacco Use Types Packs/Day Years [...] on filedocumented in this encounter Care Teams Processor Inspector Relationship Specialty [place] [address] [place] [address] PCP - General 02/26/12 02/13/14 Zoe Esqueda MD PCP - General Internal Medicine 02/14/14 03/17/23 Homa Patterson MD [facility] [address] [address] PCP - General 03/18/23 Debbie Murrell, RN Tech Transplant 02/26/12 Zoe Esqueda MD [address] [place] [address] Assigned PCP 01/04/20 11/23/20 Zoe Esqueda MD [address] [place] [address] Assigned PCP 01/09/21 07/12/21 documented as of this encounter
--- NOTE | 2024-05-24 13:00 | CRLHL7_ITS ---
For Patients: As a result of the Century Cures Act, medical imaging exams and procedure reports are released immediately into your electronic medical record. You may view this report before your referring provider. If you have questions, please contact your health care provider. DXA BONE MINERAL DENSITY STUDY Current height (in): 67.5. Weight (lb): 185.0. Menopause age: -. Ethnicity: White. 1. Have you had a previous hip or vertebral fracture? No. 2. Have you had any fractures during your adult life which did not result from significant trauma (e.g., auto accident)? No. 3. Did either of your parents have a hip fracture? No. 4. Do you smoke? No. 5. Have you ever taken Glucocorticoids? No. 6. Do you have rheumatoid arthritis? No. 7. Do you have secondary osteoporosis? No. 8. Do you drink 3 or more alcoholic drinks per day? No. 9. Are you being treated for osteoporosis? No. 10. Have you ever taken any of the following medications: Actonel, Evista, Fosamax, Miacalcin, Reclast, Boniva, Forteo, HRT (i.e. estrogen/hormone therapy), Protelos, Prolia, Vitamin D, Calcium, other ??? please specify. ANSWER: Yes, Vitamin D and calcium. 11. Do you have any of the following medical conditions: Anorexia or bulimia, asthma or emphysema, end stage renal disease, hyperparathyroidism, any seizure disorders, cancer, inflammatory bowel diseases, hysterectomy, other ??? please specify. ANSWER: No. 12. What was your maximum height (inches)? 70. 13. Do you perform weight bearing exercise regularly? No. 14. Do you regularly consume dairy products? Yes. 15. Do you drink caffeinated beverages? No. If female: 16. At what age did your period start? 12. 17. Are you premenopausal? No. 18. How many full term pregnancies have you had? 2. 9. Have you ever missed your period for more than 6 months in a row (not including or menopause)? No. TECHNIQUE: Bone mineral density study was performed using the [employer]. FINDINGS: The results of the study expressed as bone mineral density (BMD) are as follows: Lumbar spine L2, L3: BMD: 1.262 g/cm2. T-score: 1.9. Z-score: 4.1. Neck Left: BMD: 0.768 g/cm2. T-score: -0.7 . Z-score: 1.2. Right: BMD: 0.730 g/cm2. T-score: -1.1 . Z-score: 0.8. Total Left: BMD: 0.810 g/cm2. T-score: -1.1 . Z-score: 0.5. Right: BMD: 0.859 g/cm2. T-score: -0.7 . Z-score: 0.9. IMPRESSION: Osteopenia. *Comparison exams done prior to 01/2020 were performed on different unit, [employer]. COMPARISON: Compared with scan of 09/11/2019, the bone mineral density has increased by 1.6 percent at the hip. Delon Prather M.D. Diagnostic Radiologist [email or web address] JR/Dictated by: Delon Prather MD @ 05/25/2024 9:44:00 AM (Electronically Signed)
== END 2024-05-24 12:47 | disposition home or self-care (01) ==
LOC: RAD 12:48
PROVIDERS: PCP Physician Assistant Medical; Visit Provider Physician Assistant Medical
DX: Z13.820 Encounter for screening for osteoporosis (principal); M85.89 Other specified disorders of bone density and structure, multiple sites
CPT/HCPCS: 77080

== ENCOUNTER 2024-08-04 09:03 | Outpatient (CLI) | payer OTHER, SELFPAY | END 2024-08-04 09:04 | disposition home or self-care (01) | LOC: NFLDREF 08-05 22:57 | PROVIDERS: PCP Physician Assistant Medical; Referring Provider Physician Assistant Medical; Visit Provider Physician Assistant Medical | DX: R74.01 Elevation of levels of liver transaminase levels (principal); R79.0 Abnormal level of blood mineral; Z11.3 Encounter for screening for infections with a predominantly sexual mode of transmission; Z11.59 Encounter for screening for other viral diseases | CPT/HCPCS: 80076; 82728; 86703; 86803 ==

== ENCOUNTER 2024-09-12 17:39 | Emergency (ER) | payer OTHER, SELFPAY ==
[2024-09-12 17:46] VITALS: BP 124/84; PULSE 108; RESP 18; TEMP 36.6; O2SAT 97; BMI 28.2
--- NOTE | 2024-09-12 18:08 | ED.GENADULT ---
HPI - General Adult General Date Seen: 09/12/24 Chief complaint: Laceration/Wound Stated complaint: Cut RT Thumb Time Seen by Provider: 09/12/24 18:07 History of Present Illness HPI narrative: Carlos A 74 yo F presenting to the ER today with a right thumb laceration. She lacerated her thumb while cutting potatoes and sliced a section of her thumb tip off. She suffered a laceration to the radial side of her thumb tip just at the distal corner of the fingernail plate. Bleeding was controlled at home. She brought the sliced section of skin with her in a bag. She is generally healthy. No history of diabetes or immunosuppression. She believes her last tetanus shot was about 4 months ago, last April (EMR indicates it was 04/26/2024). No other injuries. No associated numbness or tingling. Normal range of motion. Related Data Home Medications ?Medication ?Instructions ?Recorded ?Confirmed core minerals See Rx Instructions PO .COMPLEX 05/13/22 04/26/24 magnecal D PO 05/13/22 04/26/24 cassandra antioxidant See Rx Instructions PO .COMPLEX 05/13/22 04/26/24 DS-01 Daily synbiotic PO 04/26/24 Previous Rx's ?Medication ?Instructions ?Recorded lorazepam 0.5 mg tablet (Ativan) 0.5 - 2 mg (1 - 4 x 0.5 mg) PO Q4H 02/09/23 PRN anxiety #4 tabs Allergies Allergy/AdvReac Type Severity Reaction Status Date / Time No Known Drug Allergies Allergy Verified 04/26/24 08:31 [facility] Medical History (Updated 09/12/24 @ 18:39 by Brian Wagner MD) Health care directive on file ?Z78.9 - Other specified health status (ICD-10) COVID-19 ?U07.1 - COVID-19 (ICD-10) Surgical History History of reduction mammoplasty (11/1985) ?Z98.890 - Other specified postprocedural states (ICD-10) History of hysteroscopy (06/19/11) ?Z98.890 - Other specified postprocedural states (ICD-10) History of colonoscopy (04/07/19) ?Z98.890 - Other specified postprocedural states (ICD-10) History of breast biopsy (05/2002) ?Z98.890 - Other specified postprocedural states (ICD-10) History of appendectomy (07/1969) ?Z90.49 - Acquired absence of other specified parts of digestive tract (ICD-10) Family History (Updated 04/26/24 @ 09:11 by Raiza Falk PA-C) Father Brain aneurysm, Onset Age: 71 Brother Family history of prostate cancer, Onset Age: 55 Diabetes Sister Thyroid disease Lung cancer Bladder cancer Mother Coronary artery disease Social History (Updated 04/26/24 @ 09:10 by Raiza Falk PA-C) Narrative: (Don). 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 2 children. Never smoker. Rarely consumes EtOH. ( 1 drink per 6 months) Exercises 3 x week yoga, walking, stationary bike, gardening. What is your current living situation?: I presently have a place to live Problems where you live: no known problems In the past 12 months, utilities in danger of being shut off: no In the past 12 mos, have been you worried that your food would run out before you had money to buy more?: never true In the past 12 mos, the food you bought just didn't last and you didn't have money to buy more?: never true Smoking Status: Never smoker How often do you have a drink containing alcohol: never AUDIT-C Alcohol total score: 0 Non-prescribed substance use: denies use How often does anyone, including family, friends and others, physically hurt you: How often does anyone, including family, friends and others, insult or talk down to you: How often does anyone, including family, friends and others, threaten you with harm: How often does anyone, including family, friends and others, scream or curse at you: service: No Exam Narrative: Exam Narrative: Constitutional: Appears well-developed and well-nourished. Very polite. HENT: Head: Atraumatic. No signs of injury. Nose: No nasal discharge. Mouth/Throat: Mucous membranes are moist. Pharynx is normal. Tonsils symmetric. Uvula midline. Airway patent. Eyes: Conjunctivae normal and EOM are normal. Pupils are equal, round, and reactive to light. Right eye exhibits no discharge. Left eye exhibits no discharge. No icterus. Neck: Normal range of motion. Neck supple. No adenopathy. No stridor. Cardiovascular: Normal rate and regular rhythm. No active bleeding Brisk capillary refill Pulmonary/Chest: Effort normal. No stridor. No respiratory distress. Musculoskeletal: There is a skin avulsion/laceration affecting the patient's right distal thumb tip. There is a wound in the skin that is approximately 6 x 10 mm in size. It is at the distal corner of the radial side of the fingernail plate involving the radial side of the thumb pad. No active bleeding. Normal distal cap refill. Intact radial and ulnar nerve sensory function. She brought the amputated flap of skin with her in a moistened towel in a Ziploc bag. I reviewed the skin. It is intact. It is contaminated with some dark black material, possibly food bits. Otherwise thumb is normal. Normal range of motion in the IP joint and MCP joint.. No edema. No tenderness. No deformity. Neurological: Alert. Normal strength. No cranial nerve deficit or sensory deficit. Coordination normal. GCS eye subscore is 4. GCS verbal subscore is 5. GCS motor subscore is 6. Skin: Skin is warm. No rash noted. Const: Vital Signs, click to edit/add: Vital Signs - 24 hr 09/12/24 17:46 Temperature 97.9 F Pulse Rate [Pulse Oximeter] 108 H Respiratory Rate 18 Blood Pressure [Le ft Upper Arm] 124/84 Pulse Oximetry 97 Oxygen Delivery Me thod Room Air Course Vital Signs Vital signs: Initial Vital Signs Temperature 97.9 F 09/12/24 17:46 Temperature Source Temporal Artery Scan 09/12/24 17:46 Pulse Rate 108 H 09/12/24 17:46 Respiratory Rate 18 09/12/24 17:46 Blood Pressure 124/84 09/12/24 17:46 Blood Pressure Mean 97 09/12/24 17:46 Blood Pressure Position Sitting 09/12/24 17:46 Pulse Oximetry 97 09/12/24 17:46 Oxygen Delivery Method Room Air 09/12/24 17:46 Vital Signs Temperature 97.9 F 09/12/24 17:46 Pulse Rate 108 H 09/12/24 17:46 Respiratory Rate 18 09/12/24 17:46 Blood Pressure 124/84 09/12/24 17:46 Pulse Oximetry 97 09/12/24 17:46 Oxygen Delivery Method Room Air 09/12/24 17:46 Temperature 97.9 F 09/12/24 17:46 Pulse Rate 108 H 09/12/24 17:46 Respiratory Rate 18 09/12/24 17:46 Blood Pressure 124/84 09/12/24 17:46 Pulse Oximetry 97 09/12/24 17:46 Oxygen Delivery Method Room Air 09/12/24 17:46 Medical Decision Making MDM Narrative Medical decision making narrative: Very pleasant 74-year-old female presenting to the ER today with a right thumb wound. She amputated a small section of the skin from the radial side of her right thumb tip today while using a kitchen mandoline. She is otherwise healthy. Not diabetic or immunosuppressed. She is up-to-date on tetanus. This appears to be a Sieve for official wound to the skin, dermis, and the very superficial part of the thumb pad. Fortunately does not involve the fingernail bed. Does not involve down to the bone. No evidence for any associated fracture. No foreign body. Options for wound care would include dressing and healing by secondary intention. The other option would be to try to anesthetize the thumb, suture the of amputated flap of skin back in place to at least grade a biologic direction. Unlikely that the skin would revascularize, but it is possible. We discussed that if we do put the skin back on then that would require follow-up visits in her clinic in 7-10 days for suture removal. At that point the skin may or may not fall off again. We discussed that if we allow to heal by secondary intention it would take several weeks for the wound to gradually re epithelialized and would definitely be sore also an open wound. Using a process 0 shared decision-making, we opted to allow the wound to heal by secondary intention. Wound cleansing and wound prep was performed by optical lens manufacturing tech. Sterile non adhering dressing with antibiotic ointment was applied. Discharge Plan Discharge Clinical Impression: Fingertip avulsion Patient Disposition: Home, Self-Care Condition: Stable Instructions: Skin Avulsion (ED) Additional Instructions: As we discussed, I would try to keep the wound clean and dry tonight. Keep the dressing on at night where sleeping and during the day. Please take the dressing off once per day to clean the wound gently with warm water. You do not have to scrub the wound vigorously or rinse it with bleach or other chemicals. After the wash it gently, a gently dab it dry with clean gauze or let it air dry. After it is dry reapply antibiotic ointment and a dressing to keep the wound covered. Please try to avoid submerging your thumb under water EMR for the next 7 days. Monitor carefully for signs of infection, such as redness, swelling of the wound, or pus draining from the wound. If you have any concerns, please see your doctor or come back to the ER right away. Prescriptions: No Action lorazepam [Ativan] 0.5 mg tablet 0.5 - 2 mg PO Q4H PRN (Reason: anxiety) Qty: 4 0RF Rx Instructions: take 1-4 tab 1 h before procedure core minerals See Rx Instructions PO .COMPLEX Rx Instructions: 2 tab orally; cassandra antioxidant See Rx Instructions PO .COMPLEX Rx Instructions: 2 tab orally; magnecal D PO DS-01 Daily synbiotic PO Follow Up/Referrals: Raiza Falk PA-C [Primary Care Provider] - Stand Alone Forms: [employer] Info Instructions
--- OUTSIDE RECORDS SUMMARY | 2024-09-13 14:43 | XMS_ITS | Encounter Summary ---
Author Organization [facility] Address [address] [place] [address]. [place] [address] Care Team Providers Care Barber Shop Operator Name Role Phone Concha Garcia MD Primary Care Provider [phone] Debbie Murrell RN Unavailable Unavail able LogeaisZoe MD Primary Care Provider [phone] LogeaisZoe MD Unavailable LogeaisZoe MD Unavailable Homa Patterson MD Primary Care Provider + Encounter Details Date Type Department Care Team (Late st Contact Info) Description 09/20/2012 [address] [phone] Chiquita Grady RN Social History Tobacco Use Types Packs/Day Years Used Date Smoking Tobacco: Never Alcohol Use Standard Drinks/Week Comments Yes 0 (1 standard drink = 0.6 oz pur e alcohol) 1-2 beers per month Comments Unknown Sex and Gender Information Value Date Recorded Sex Assigned at Not on file Legal Sex Female 3:19 AM INDEPENDENT FREIGHT AGENT Gender Identity Not on file Sexual Orientation Not on file 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 Not on file Not on file Not on file documented as of this encounter Plan of Treatment Not on file documented as of this encounter Visit Diagnoses Not on filedocumented in this encounter Care Teams Barber Shop Operator Relationship Specialty [place] [address] [place] [address] PCP - General 02/26/12 02/13/14 Zoe Esqueda MD PCP - General Internal Medicine 02/14/14 03/17/23 Homa Patterson MD [facility] [address] [address] PCP - General 03/18/23 Debbie Murrell RN Tech Transplant 02/26/12 Zoe Esqueda MD [address] [address] Assigned PCP 01/04/20 11/23/20 Zoe Esqueda MD [address] [address] Assigned PCP 01/09/21 07/12/21 documented as of this encounter
--- OUTSIDE RECORDS SUMMARY | 2024-09-13 14:44 | XMS_ITS ---
Author Organization [facility] Address [address] [place] [address] Care Team Providers Care Database Report Writer Name Role Phone Debbie Murrell RN, Ingrid Sara MD Primary Care Provider + Transplant Episode Kidney Potential Donor [facility] ([place], [place]) - [place] Evaluation began on 02/26/2012 Marked as Active on 02/26/2012 Kidney CoordinatorDebbie Murrell RN Phone: N/A Fax: N/A Email: [email or web address] Care Team Name Role Phone Fax Email Debbie Murrell RN Kidney Coordinator N/A N/A Events Pre-Donation Referred: 01/15/2012 Evaluation began: 02/26/2012 Committee: 04/11/2012
--- OUTSIDE RECORDS SUMMARY | 2024-09-13 14:44 | XMS_ITS | Clinical Summary ---
Author Organization [facility] Address [place], [place] [address] Care Team Providers Care Manager Quality Compliance Name Role Phone Concha Garcia MD Primary Care Provider [phone] Allergies No known active allergies Medications aspirin 81 mg tablet Take 81 mg by mouth once daily with a meal. Active acetaminophen SR (TYLENOL ARTHRITIS) 650 mg extended release tabletIndicati ons:arthritic pain Take 650 mg by mouth every 8 hours if needed. Max acetaminophen dose: 4000mg in 24 hrs. Indications: ARTHRITIC PAIN Active [place]-3 Fatty Acids (FISH OIL CONCENTRATE) 1,000 mg Cap Take 2 capsules by mouth 2 times daily. Active Magnesium 500 mg Tab Take 500 mg by mouth once daily in the evening. Active Potassium Gluconate 595 (99) mg tablet Take by mouth before bedtime. Active Cholecalcifero l, Vitamin D3, (VITAMIN D-3) 2,000 unit tablet Take by mouth once daily. Active ORDER - MEDICATION ORDER COMPOSER Take 2 Tabs by mouth 2 times daily. USANA essential and USANA kathie antioxidant Active GLUC/CADENCE-MSM# 1/C/EARNESTINE/DOROTHY/B OR (OSTEO BI-FLEX ORAL) Take 1 Tab by mouth 2 times daily. Active ibuprofen (ADVIL; MOTRIN) 600 mg tablet Take 1 tablet by mouth every 6 hours if needed for Pain. Maximum of 3200 mg in 24 hours. 20 tablet 0 1 Active HYDROcodone-ac etaminophen, 5-500 mg, (VICODIN) Tab tablet Take 1-2 tablets by mouth every 4 hours if needed for Pain. Max acetaminophen dose: 4000mg in 24 hrs. 20 tablet 0 1 Active Social History Tobacco Use Types Packs/Day Years Used Date Smoking Tobacco: Never Alcohol Use Standard Drinks/Week Comments Not Asked 0 (1 standard drink = 0.6 oz pur e alcohol) Comments Unknown Sex and Gender Information Value Date Recorded Sex Assigned at Not on file Legal Sex Female 6:08 AM BLOCKER HAND Gender Identity Not on file Sexual Orientation Not on file Obstetrics History Last Filed Vital Signs Vital Sign Reading Time Taken Comments Blood Pressure 103/65 06/19/2011 1:30 PM CDT Pulse 80 06/19/2011 1:30 PM CDT Temperature 35.9 C (96.6 F) 06/19/2011 12:06 PM CDT Respiratory Rate 16 06/19/2011 1:30 PM CDT [...] 11:07 AM 06/19/2011 3:51 PM Care Teams Manager Quality Compliance Relationship Specialty Start Date End Date Concha Garcia MD PCP - General Family Practice 05/11/11
--- OUTSIDE RECORDS SUMMARY | 2024-09-13 14:44 | XMS_ITS | Clinical Summary ---
Author Organization [facility] Address [address] [place] [address]. [place] [address] Care Team Providers Care Special Weapons Unit Officer Name Role Phone Debbie Murrell RN Unavailable Unavail able Homa Patterson MD Primary Care Provider + Allergies No known active allergies Medications UNABLE TO FIND Take 1 tablet by mouth 2 times daily Beta-TCP 5 Active UNABLE TO FIND Take 2 tablets by mouth 2 times daily Bio-Glycozyme Forte 5 Active UNABLE TO FIND Take 3 tablets by mouth 2 times daily [place]-Zyme Active UNABLE TO FIND Take 1 tablet by mouth 2 times daily Multi-Mins 5 Active UNABLE TO FIND Take 1 tablet by mouth 2 times daily PoSynbiotic 5 Active diazepam (VALIUM) 2 MG tabletIndicatio ns:Claustrophob ia Take 3 tablets (6 mg) by mouth every 6 hours as needed for anxiety (10 min prior to MRI, 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 [email or web address] Problem Noted Date Diagnosed Date Pain in joint of left shoulder 04/24/2016 Hypercholesterolemia 02/26/2012 Overview (06/17/2015): Diagnosis updated by automated process. Provider to review and confirm. Hyperlipidemia 02/26/2012 Overview (05/17/2015): Problem list name updated by automated process. 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 file Not on file Not on file Last Filed Vital Signs Vital Sign Reading Time Taken Comments Blood Pressure 121/82 07/11/2018 11:39 AM CHRONOMETER ASSEMBLER AND ADJUSTER Pulse 69 07/11/2018 11:39 AM CHRONOMETER ASSEMBLER AND ADJUSTER Temperature 36.5 C (97.7 F) 06/11/2017 7:44 AM CDT Respiratory Rate 18 06/11/2017 7:44 AM CDT Oxygen Saturation 97% 07/11/2018 11:39 AM CHRONOMETER ASSEMBLER AND ADJUSTER Inhaled Oxygen Concentration - - Weight 84.4 kg (186 lb) 07/11/2018 11:39 AM CHRONOMETER ASSEMBLER AND ADJUSTER Height 172 cm (5' 7.72) 06/11/2017 7:44 [...] - Td or Tdap) 01/31/2023 01/31/2013, 01/14/2013 COVID-19 Vaccine ( season) 2024 08/06/2022, 03/29/2022, 06/30/2021, Additional history exists INFLUENZA VACCINE (#1) 2024 , 06/14/2022, 05/20/2021, Additional history exists COLONOSCOPY 05/04/2024 05/04/2019, 03/17, 04/07/2019, Additional history exists COLORECTAL CANCER SCREENING 05/04/2024 PHQ-2 (once per calendar year) 2024 07/11/2018 RSV VACCINE (1 - 1-dose 75+ series) 2027 HEPATITIS C SCREENING Completed 02/26/2012 ZOSTER IMMUNIZATION Completed 08/01/2019, 07/11/2018, 01/31/2013 Pneumococcal Vaccine: 50+ Years Completed 01/20/2022, 07/11/2018 HPV IMMUNIZATION Aged [...] COMPREHENSIVE METABOLIC PANEL Routine 07/11/2018 1:32 PM CHRONOMETER ASSEMBLER AND ADJUSTER Routine general medical examination at a [facility] Kidney donor LIPID REFLEX TO DIRECT LDL PANEL Routine 07/11/2018 1:32 PM CHRONOMETER ASSEMBLER AND ADJUSTER Hypercholesterolemi a MAMMOGRAM - HIM SCAN 07/27/2013 HEPATITIS C ANTIBODY Routine 02/26/2012 8:17 AM CDT Donor of kidney for transplant Transplant donor evaluation from Last 3 Months or Most Recently Relevant to Health Maintenance Results * (ABNORMAL) Colonoscopy - HIM Scan (04/07/2019) Impressions Jesus Alberto Gracia CMA - 04/07/2019 [facility] Colorectal polyp detected on colonoscopy Hemorrhoids, internal us Patient Reported PROCEDURES Final Result * (ABNORMAL) Lipid panel reflex to direct LDL Fasting (07/11/2018 1:32 PM CHRONOMETER ASSEMBLER AND ADJUSTER) Cholesterol 198 <200 mg/dL 07/11/2018 2:09 PM CHRONOMETER ASSEMBLER AND ADJUSTER [facility] Triglycerides 88 <150 mg/dL 07/11/2018 2:09 PM CHRONOMETER ASSEMBLER AND ADJUSTER [facility] HDL Cholesterol 57 >49 mg/dL 8 2:09 PM CHRONOMETER ASSEMBLER AND ADJUSTER [facility] LDL Cholesterol Calculated 123(H) <100 mg/dL 07/11/2018 2:09 PM CHRONOMETER ASSEMBLER AND ADJUSTER [facility] Comment: Above desirable: 100-129 mg/dl Borderline High: 130-159 mg/dL High: 160-189 mg/dL Very high: >189 mg/dl Non HDL Cholesterol 141(H) <130 mg/dL 07/11/2018 2:09 PM CHRONOMETER ASSEMBLER AND ADJUSTER [facility] Comment: Above Desirable: 130-159 mg/dl Borderline high: 160-189 mg/dl High: 190-219 mg/dl Very high: >219 mg/dl Blood specimen (specimen) 07/11/2018 1:32 PM CHRONOMETER ASSEMBLER AND ADJUSTER 07/11/2018 1:35 PM CHRONOMETER ASSEMBLER AND ADJUSTER us Zoe Esqueda MD LAB - BLOOD ORDERABLES Final Res ult [address] [phone] * Comprehensive metabolic panel (07/11/2018 1:32 PM CHRONOMETER ASSEMBLER AND ADJUSTER) Sodium 141 133 - 144 mmol/L 07/11/2018 2:09 PM [facility] Potassium 4.3 3.4 - 5.3 mmol/L 07/11/2018 2:09 PM [facility] Chloride 108 94 - 109 mmol/L 07/11/2018 2:09 PM [facility] Carbon Dioxide 25 20 - 32 mmol/L 07/11/2018 2:09 PM CHRONOMETER ASSEMBLER AND ADJUSTER [facility] Anion Gap 8 3 - 14 mmol/L 07/11/2018 2:09 PM CHRONOMETER ASSEMBLER AND ADJUSTER [facility] Glucose 83 70 - 99 mg/dL 07/11/2018 2:09 PM [facility] Urea Nitrogen 14 7 - 30 mg/dL 07/11/2018 2:09 PM CHRONOMETER ASSEMBLER AND ADJUSTER [facility] Creatinine 0.70 0.52 - 1.04 mg/dL 07/11/2018 2:09 PM CHRONOMETER ASSEMBLER AND ADJUSTER [facility] GFR Estimate 83 >60 mL/min/1.7 m2 07/11/2018 2:09 PM [facility] Comment:Non GFR Calc GFR Estimate If Black >90 >60 mL/min/1.7 m2 07/11/2018 2:09 PM [facility] Comment: GFR Calc Calcium 8.6 8.5 - 10.1 mg/dL 07/11/2018 2:09 PM CHRONOMETER ASSEMBLER AND ADJUSTER [facility] Bilirubin Total 0.6 0.2 - 1.3 mg/dL 07/11/2018 2:09 PM CHRONOMETER ASSEMBLER AND ADJUSTER [facility] Albumin 3.8 3.4 - 5.0 g/dL 07/11/2018 2:09 PM CHRONOMETER ASSEMBLER AND ADJUSTER [facility] Protein Total 7.5 6.8 - 8.8 g/dL 07/11/2018 2:09 PM CHRONOMETER ASSEMBLER AND ADJUSTER [facility] Alkaline Phosphatase 64 40 - 150 U/L 07/11/2018 2:09 PM CHRONOMETER ASSEMBLER AND ADJUSTER [facility] ALT 39 0 - 50 U/L 07/11/2018 2:09 PM CHRONOMETER ASSEMBLER AND ADJUSTER [facility] AST 32 0 - 45 U/L 07/11/2018 2:09 PM CHRONOMETER ASSEMBLER AND ADJUSTER [facility] Blood specimen (specimen) 07/11/2018 1:32 PM CHRONOMETER ASSEMBLER AND ADJUSTER 07/11/2018 1:35 PM CHRONOMETER ASSEMBLER AND ADJUSTER us Zoe Esqueda MD LAB - BLOOD ORDERABLES Final Res ult [address] [phone] * MAMMOGRAM - HIM SCAN (07/27/2013) Anatomical Region Laterality Modality Other 07/27/2013 Narrative Transcriptions Scan, Provider - 08/28/2013 2:25 PM CST us Provider Outside IMG MAMMOGRAPHY ORDERABLES Cecilia l Result * Hepatitis C antibody (02/26/2012 8:17 AM CDT) Hepatitis C Antibody Negative NEG [facility] Blood specimen (specimen) 02/26/2012 8:17 AM CDT 02/26/2012 8:22 AM CDT us Meir Bloom MD LAB - BLOOD ORDERABLES F inal Result [facility] [address] [place] [address] from Last 3 Months or Most Recently Relevant to Health Maintenance Insurance [employer] Care Teams Special Weapons Unit Officer Relationship Specialty Start Date End Date Homa Patterson MD [facility] & [address] [address] PCP - General 03/18/23 Debbie Murrell, RN Tech Transplant 02/26/12
--- OUTSIDE RECORDS SUMMARY | 2024-09-13 14:44 | XMS_ITS | Encounter Summary ---
Author Organization [facility] Address [address] [place] [address] Care Team Providers Care Yard General Car Supervisor Name Role Phone Debbie Murrell RN Unavailable Unavail able LogeaZoe sanchez MD Primary Care Provider [phone] LogeaZoe sanchez MD Unavailable LogeaZoe sanchez MD Unavailable Homa Patterson MD Primary Care Provider + Encounter Details Date Type Department Care Team (Late st Contact Info) Description 08/24/2018 [facility] [address] [place] [phone] LogZoe govea MD [address] [place] [address] Social History Tobacco Use Types Packs/Day Years Used Date Smoking Tobacco: Never Smokeless Tobacco: Never Alcohol Use Standard Drinks/Week Comments Yes 0 (1 standard drink = 0.6 oz pur e alcohol) 1-2 beers per month PHQ-2 Answer Date Recorded PHQ-2 Score 0 07/11/2018 Comments No Sex and Gender Information Value Date Recorded Sex Assigned at Not on file Legal Sex Female 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 Gender Identity Not on file Sexual Orientation Not on file 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 Not on file Not on file Not on file documented as of this encounter Plan of Treatment Not on file documented as of this encounter Visit Diagnoses Not on filedocumented in this encounter Care Teams Yard General Car Supervisor Relationship Specialty Start Date End Date Zoe Esqueda MD PCP - General Internal Medicine 02/14/14 03/17/23 Homa Patterson MD [address] [address] PCP - General 03/18/23 Debbie Murrell RN Tech Transplant 02/26/12 Zoe Esqueda MD [address] [place] [address] Assigned PCP 01/04/20 11/23/20 Zoe Esqueda MD [address] [place] [address] Assigned PCP 01/09/21 07/12/21 documented as of this encounter
--- OUTSIDE RECORDS SUMMARY | 2024-09-13 14:44 | XMS_ITS | Encounter Summary ---
Author Organization [facility] Address [address] [place] [address]. [place] [address] Care Team Providers Care It Systems Analyst Name Role Phone Concha Garcia MD Primary Care Provider [phone] Debbie Murrell RN Unavailable Unavail able LogeaisZoe MD Primary Care Provider [phone] LogeaisZoe MD Unavailable LogeaisZoe MD Unavailable Homa Patterson MD Primary Care Provider + Encounter Details Date Type Department Care Team (Late st Contact Info) Description 02/02/2014 [facility] Medical Advice Initial Department [facility] Social History Tobacco Use Types Packs/Day Years Used Date Smoking Tobacco: Never Smokeless Tobacco: Never Alcohol Use Standard Drinks/Week Comments Yes 0 (1 standard drink = 0.6 oz pur e alcohol) 1-2 beers per month Comments No Sex and Gender Information Value Date Recorded Sex Assigned at Not on file 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 Gender Identity Not on file Sexual Orientation Not on file 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 Not on file Not on file Not on file documented as of this encounter Plan of Treatment Not on file documented as of this encounter Visit Diagnoses Not on filedocumented in this encounter Care Teams It Systems Analyst Relationship Specialty [place] [address] [place] [address] PCP - General 02/26/12 02/13/14 Zoe Esqueda MD PCP - General Internal Medicine 02/14/14 03/17/23 Homa Patterson MD [facility] & [address] [address] PCP - General 03/18/23 Debbie Murrell RN Tech Transplant 02/26/12 Zoe Esqueda MD [address] [address] Assigned PCP 01/04/20 11/23/20 Zoe Esqueda MD [address] [place] [id number] Assigned PCP 01/09/21 07/12/21 documented as of this encounter
--- OUTSIDE RECORDS SUMMARY | 2024-09-13 14:44 | XMS_ITS | Referral Summary ---
Author Organization [facility] Address [address] [place] [address]. [place] [address] Care Team Providers Care Fern Picker Name Role Phone Debbie Murrell RN Unavailable Unavail able Homa Patterson MD Primary Care Provider + Allergies No known active allergies Medications UNABLE TO FIND Take 1 tablet by mouth 2 times daily Beta-TCP 5 Active UNABLE TO FIND Take 2 tablets by mouth 2 times daily Bio-Glycozyme Forte 5 Active UNABLE TO FIND Take 3 tablets by mouth 2 times daily [place]-Zyme Active UNABLE TO FIND Take 1 tablet by mouth 2 times daily Multi-Mins 5 Active UNABLE TO FIND Take 1 tablet by mouth 2 times daily PoSynbiotic 5 Active diazepam (VALIUM) 2 MG tabletIndicatio ns:Claustrophob ia Take 3 tablets (6 mg) by mouth every 6 hours as needed for anxiety (10 min prior to MRI, 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 [email or web address] Problem Noted Date Diagnosed Date Pain in [...] on file Legal Sex Female 3:19 AM AUTO SUSPENSION AND STEERING MECHANIC Gender Identity Not on file Sexual Orientation Not on file 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 Not on file Not on file Not on file Last Filed Vital Signs Vital Sign Reading Time Taken Comments Blood Pressure 121/82 07/11/2018 11:39 AM AUTO SUSPENSION AND STEERING MECHANIC Pulse 69 07/11/2018 11:39 AM AUTO SUSPENSION AND STEERING MECHANIC Temperature 36.5 C (97.7 F) 06/11/2017 7:44 AM CDT Respiratory Rate 18 06/11/2017 7:44 AM CDT Oxygen Saturation 97% 07/11/2018 11:39 AM AUTO SUSPENSION AND STEERING MECHANIC Inhaled Oxygen Concentration - - Weight 84.4 kg (186 lb) 07/11/2018 11:39 AM AUTO SUSPENSION AND STEERING MECHANIC Height 172 cm (5' 7.72) 06/11/2017 7:44 AM CDT Body Mass Index 28.52 06/11/2017 7:44 AM CDT Plan of Treatment Not on file Procedures Procedure Name Priority Date/Time Associated Diagnosis Comments COLONOSCOPY - HIM SCAN Routine 9 9:11 AM CDT COMPREHENSIVE METABOLIC PANEL Routine 07/11/2018 1:32 PM AUTO SUSPENSION AND STEERING MECHANIC Routine general medical examination at a health care facility Kidney donor LIPID REFLEX TO DIRECT LDL PANEL Routine 07/11/2018 1:32 PM AUTO SUSPENSION AND STEERING MECHANIC Hypercholesterolemi a MAMMOGRAM - HIM SCAN 07/27/2013 HEPATITIS C ANTIBODY Routine 02/26/2012 8:17 AM CDT Donor of kidney for transplant Transplant donor evaluation from Last 3 Months or Most Recently Relevant to Health Maintenance Results * (ABNORMAL) Colonoscopy - HIM Scan (04/07/2019) Impressions Jesus Alberto Gracia CMA - 04/07/2019 [facility] Colorectal polyp detected on colonoscopy Hemorrhoids, internal us Patient Reported PROCEDURES Final Result * (ABNORMAL) Lipid panel reflex to direct LDL Fasting (07/11/2018 1:32 PM AUTO SUSPENSION AND STEERING MECHANIC) Cholesterol 198 <200 mg/dL 07/11/2018 2:09 PM AUTO SUSPENSION AND STEERING MECHANIC [facility] Triglycerides 88 <150 mg/dL 07/11/2018 2:09 PM AUTO SUSPENSION AND STEERING MECHANIC [facility] HDL Cholesterol 57 >49 mg/dL 8 2:09 PM AUTO SUSPENSION AND STEERING MECHANIC [facility] LDL Cholesterol Calculated 123(H) <100 mg/dL 07/11/2018 2:09 PM AUTO SUSPENSION AND STEERING MECHANIC [facility] Comment: Above desirable: 100-129 mg/dl Borderline High: 130-159 mg/dL High: 160-189 mg/dL Very high: >189 mg/dl Non HDL Cholesterol 141(H) <130 mg/dL 07/11/2018 2:09 PM AUTO SUSPENSION AND STEERING MECHANIC [facility] Comment: Above Desirable: 130-159 mg/dl Borderline high: 160-189 mg/dl High: 190-219 mg/dl Very high: >219 mg/dl Blood specimen (specimen) 07/11/2018 1:32 PM AUTO SUSPENSION AND STEERING MECHANIC 07/11/2018 1:35 PM AUTO SUSPENSION AND STEERING MECHANIC us Zoe Esqueda MD LAB - BLOOD ORDERABLES Final Res ult [address] [phone] * Comprehensive metabolic panel (07/11/2018 1:32 PM AUTO SUSPENSION AND STEERING MECHANIC) Sodium 141 133 - 144 mmol/L 07/11/2018 2:09 PM AUTO SUSPENSION AND STEERING MECHANIC [facility] Potassium 4.3 3.4 - 5.3 mmol/L 07/11/2018 2:09 PM [facility] Chloride 108 94 - 109 mmol/L 07/11/2018 2:09 PM [facility] Carbon Dioxide 25 20 - 32 mmol/L 07/11/2018 2:09 PM [facility] Anion Gap 8 3 - 14 mmol/L 07/11/2018 2:09 PM [facility] Glucose 83 70 - 99 mg/dL 07/11/2018 2:09 PM [facility] Urea Nitrogen 14 7 - 30 mg/dL 07/11/2018 2:09 PM [facility] Creatinine 0.70 0.52 - 1.04 mg/dL 07/11/2018 2:09 PM [facility] GFR Estimate 83 >60 mL/min/1.7 m2 07/11/2018 2:09 PM [facility] Comment:Non GFR Calc GFR Estimate If Black >90 >60 mL/min/1.7 m2 07/11/2018 2:09 PM [facility] Comment: GFR Calc Calcium 8.6 8.5 - 10.1 mg/dL 07/11/2018 2:09 PM [facility] Bilirubin Total 0.6 0.2 - 1.3 mg/dL 07/11/2018 2:09 PM [facility] Albumin 3.8 3.4 - 5.0 g/dL 07/11/2018 2:09 PM [facility] Protein Total 7.5 6.8 - 8.8 g/dL 07/11/2018 2:09 PM AUTO SUSPENSION AND STEERING MECHANIC [facility] Alkaline Phosphatase 64 40 - 150 U/L 07/11/2018 2:09 PM AUTO SUSPENSION AND STEERING MECHANIC [facility] ALT 39 0 - 50 U/L 07/11/2018 2:09 PM AUTO SUSPENSION AND STEERING MECHANIC [facility] AST 32 0 - 45 U/L 07/11/2018 2:09 PM AUTO SUSPENSION AND STEERING MECHANIC [facility] Blood specimen (specimen) 07/11/2018 1:32 PM AUTO SUSPENSION AND STEERING MECHANIC 07/11/2018 1:35 PM AUTO SUSPENSION AND STEERING MECHANIC us Zoe Esqueda MD LAB - BLOOD ORDERABLES Final Res ult Performing Organization Address [facility]/State/ZIP Co de Phone Number [address] [phone] * MAMMOGRAM - HIM SCAN (07/27/2013) Anatomical Region Laterality Modality Other 07/27/2013 Narrative Transcriptions Scan, Provider - 08/28/2013 2:25 PM CST us Provider Outside IMG MAMMOGRAPHY ORDERABLES Cecilia l Result * Hepatitis C antibody (02/26/2012 8:17 AM CDT) Hepatitis C Antibody Negative NEG [facility] Blood specimen (specimen) 02/26/2012 8:17 AM CDT 02/26/2012 8:22 AM CDT us Meir Bloom MD LAB - BLOOD ORDERABLES F inal Result [facility] [address] [place] [address] from Last 3 Months or Most Recently Relevant to Health Maintenance Insurance [facility] [employer] Care Teams Fern Picker Relationship Specialty Start Date End Date Homa Patterson MD [facility] & [address] [address] PCP - General 03/18/23 Debbie Murrell RN Tech Transplant 02/26/12
--- OUTSIDE RECORDS SUMMARY | 2024-09-13 14:44 | XMS_ITS | Encounter Summary ---
Author Organization [facility] Address [address] [place] [address] Care Team Providers Care Doorperson Name Role Phone Debbie Murrell RN Unavailable Unavail able LogeaisZoe MD Primary Care Provider [phone] LogeaZoe sanchez MD Unavailable LogeaisZoe MD Unavailable Homa Patterson MD Primary Care Provider + Encounter Details Date Type Department Care Team (Late st Contact Info) Description 04/03/2016 [facility] [address] [place] [phone] LogZoe govea MD [address] [place] [address] Social History Tobacco Use Types Packs/Day Years Used Date Smoking Tobacco: Never Smokeless Tobacco: Never Alcohol Use Standard Drinks/Week Comments Yes 0 (1 standard drink = 0.6 oz pur e alcohol) 1-2 beers per month Comments No Sex and Gender Information Value Date Recorded Sex Assigned at Not on file Legal Sex Female 3:19 AM INTRANET SUPPORT Gender Identity Not on file Sexual Orientation Not on file 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 Not on file Not on file Not on file documented as of this encounter Plan of Treatment Not on file documented as of this encounter Visit Diagnoses Not on filedocumented in this encounter Care Teams Doorperson Relationship Specialty Start Date End Date Zoe Esqueda MD PCP - General Internal Medicine 02/14/14 03/17/23 Homa Patterson MD [facility] & [address] [address] PCP - General 03/18/23 Debbie Murrell RN Tech Transplant 02/26/12 Zoe Esqueda MD [address] [place] [address] Assigned PCP 01/04/20 11/23/20 Zoe Esqueda MD [address] [place] [id number] Assigned PCP 01/09/21 07/12/21 documented as of this encounter
== END 2024-09-12 19:09 | disposition home or self-care (01) ==
LOC: ED 18:44
PROVIDERS: Emergency Provider Emergency Medicine; PCP Physician Assistant Medical
DX: S61.001A Unspecified open wound of right thumb without damage to nail, initial encounter (principal); W27.8XXA Contact with other nonpowered hand tool, initial encounter; Y93.G3 Activity, cooking and baking
CPT/HCPCS: 99281; 99282; 99283

== ENCOUNTER 2025-06-25 12:57 | Outpatient (CLI) | payer OTHER, SELFPAY ==
--- NOTE | 2025-06-25 13:20 | CRLHL7_ITS ---
For Patients: As a result of the Century Cures Act, medical imaging exams and procedure reports are released immediately into your electronic medical record. You may view this report before your referring provider. If you have questions, please contact your health care provider. INDICATION: BILATERAL SCREENING MAMMOGRAM, ASYMPTOMATIC 74 Y/O FEMALE COMPARISON: 02/24/2024, 02/09/2023, 02/05/2022 TECHNIQUE: Digital mammogram in CC and MLO projections including computer-aided detection (CAD) and tomosynthesis. BREAST COMPOSITION: The breasts are heterogeneously dense, which may obscure small masses. FINDINGS: No suspicious findings. ASSESSMENT: BI-RADS 2 Benign RECOMMENDATION: Annual screening mammogram. A lay language report of this examination will be provided to the patient. Dictated by: Delon Prather MD @ 06/26/2025 10:14:07 (Electronically Signed)
== END 2025-06-25 12:58 | disposition home or self-care (01) ==
LOC: MAMMO 12:58
PROVIDERS: PCP Physician Assistant Medical; Visit Provider Physician Assistant Medical
DX: Z12.31 Encounter for screening mammogram for malignant neoplasm of breast (principal); R92.333 Mammographic heterogeneous density, bilateral breasts
CPT/HCPCS: 77063; 77067